=== PATIENT | female | born 1940 | race African-American/Black ===

== ENCOUNTER 2022-08-10 22:53 | Emergency (ER) | payer OTHER ==
[~2022-08-10] VITALS: Ht 172.7 cm; Wt 82.0 kg
[2022-08-10 22:55] VITALS: O2SAT 99
[2022-08-11 00:23] LABS: BASOPHILS % 0.6 % (0.0-2.0); EOSINOPHILS % 0.5 % (0.0-5.0); HEMOGLOBIN. 15.7 g/dL (12.0-16.0); LYMPHOCYTES % 15.3 % (20.0-50.0); MEAN CORPUSCULAR VOLUME 97.6 fL (81.0-99.0); MEAN PLATELET VOLUME 8.6 fl (7.4-10.4); MONOCYTES % 10.5 % (2.0-8.0); NEUTROPHILS % 73.1 % (40.0-76.0); PLATELET 185 x1000/uL (130-400); RED BLOOD CELL COUNT 4.92 mill/uL (4.2-5.4); RED CELL DISTRIBUTION WIDTH 13.8 % (11.6-14.6)
[2022-08-11 00:47] LABS: CLARITY URINE CLEAR (CLEAR); COLOR URINE YELLOW (YELLOW); KETONES URINE NEGATIVE (NEGATIVE); LEUKOCYTE ESTERASE URINE TRACE (NEGATIVE); NITRITE URINE NEGATIVE (NEGATIVE); OCCULT BLOOD URINE NEGATIVE (NEGATIVE); PH URINE 7.5 (4.5-8.0); PROTEIN URINE TRACE (NEGATIVE); SPECIFIC GRAVITY URINE 1.016 (1.005-1.030)
[2022-08-11 01:04] LABS: *AMPHETAMINES SCREEN URINE NEGATIVE (NEGATIVE); *BARBITURATES SCREEN URINE NEGATIVE (NEGATIVE); *BENZODIAZEPINES SCREEN URINE NEGATIVE (NEGATIVE); *COCAINE SCREEN URINE NEGATIVE (NEGATIVE); CANNABINOID URINE SCREEN NEGATIVE (NEGATIVE); METHADONE URINE SCREEN NEGATIVE (NEGATIVE); OPIATES URINE SCREEN NEGATIVE (NEGATIVE); PHENCYCLIDINE URINE SCREEN NEGATIVE (NEGATIVE)
[2022-08-11 02:59] LABS: CHLORIDE 102 mEq/L (98-107)
[2022-08-11 03:08] LABS: ETHANOL BLOOD < 10 mg/dL (-10)
[2022-08-11] MEDS ORDERED: CEFTRIAXONE 1GM PREMIX 50 ML IV ONE (03:15)
[2022-08-11 07:54] VITALS: BP 131/80; PULSE 99; RESP 26; TEMP 97.4
== END 2022-08-11 08:16 | disposition short-term general hospital (02) ==
LOC: EDBD 22:53 → ER 22:53
DX: G93.40 Encephalopathy, unspecified (principal); N39.0 Urinary tract infection, site not specified; I48.91 Unspecified atrial fibrillation; R51.9 Headache, unspecified
CPT/HCPCS: 80053; 80305; 81003; 80320; 82140; 85025; 84484; 36415; 71045; 99285; 87426; 70450; 96365; C9803; J0696; G0480

== ENCOUNTER 2023-08-16 14:52 | Emergency (ER) | payer OTHER ==
[~2023-08-16] VITALS: Ht 157.5 cm; Wt 91.0 kg
[2023-08-16 15:00] VITALS: O2SAT 99
[2023-08-16] MEDS: HYDROCODONE/ACETAMINOPHEN 5/325MG TABLET PO ONE (16:42)
[2023-08-16] MEDS: ONDANSETRON HCL 4MG/2ML INJ IV ONE (18:05)
[2023-08-16] MEDS: MORPHINE SULFATE 4 MG/ML INJ (FOR IV/IM USE) IV ONE (18:05)
[2023-08-16 18:06] LABS: BASOPHILS % 0.4 % (0.0-2.0); EOSINOPHILS % 0.1 % (0.0-5.0); HEMATOCRIT. 49.7 % (36.0-48.0); HEMOGLOBIN. 16.4 g/dL (12.0-16.0); LYMPHOCYTES % 14.7 % (20.0-50.0); MEAN CORPUSCULAR HEMOGLOBIN 32.5 pg (28.0-32.0); MEAN CORPUSCULAR HGB CONC 32.9 g/dL (31.0-37.0); MEAN CORPUSCULAR VOLUME 98.6 fL (81.0-99.0); MEAN PLATELET VOLUME 8.8 fl (7.4-10.4); MONOCYTES % 4.9 % (2.0-8.0); NEUTROPHILS % 79.9 % (40.0-76.0); PLATELET 202 x1000/uL (130-400); RED BLOOD CELL COUNT 5.04 mill/uL (4.2-5.4); RED CELL DISTRIBUTION WIDTH 14.4 % (11.6-14.6); WHITE BLOOD COUNT 8.6 x1000/uL (4.5-11.0)
[2023-08-16 18:12] LABS: CHLORIDE 105 mEq/L (98-107); POTASSIUM 4.2 mEq/L (3.5-5.1); SODIUM 139 mEq/L (136-145)
[2023-08-16 18:13] LABS: CARBON DIOXIDE 26 mEq/L (21-32)
[2023-08-16 18:14] LABS: CALCIUM 10.3 mg/dL (8.7-10.4)
[2023-08-16 18:18] LABS: CREATININE 0.9 mg/dL (0.6-1.0); GLUCOSE 117 mg/dL (70-105)
[2023-08-16 18:19] LABS: UREA NITROGEN BLOOD 14 mg/dL (9-23)
[2023-08-16 18:33] LABS: INR 1.2; PROTHROMBIN TIME 13.1 sec (9.6-11.0)
[2023-08-16] MEDS: METOPROLOL TARTRATE 5MG/5ML VIAL IV STA ×2 (20:28→20:41)
[2023-08-16] MEDS: METOPROLOL TARTRATE 50MG TABLET PO ONE (21:25)
[2023-08-16 21:27] VITALS: BP 173/117; PULSE 105; RESP 12; TEMP 98.8
== END 2023-08-16 21:49 | disposition short-term general hospital (02) ==
LOC: ER 14:52
DX: S09.90XA Unspecified injury of head, initial encounter (principal); M25.561 Pain in right knee; I48.91 Unspecified atrial fibrillation; I10 Essential (primary) hypertension; W18.39XA Other fall on same level, initial encounter; Y93.89 Activity, other specified; Y92.89 Other specified places as the place of occurrence of the external cause; Y99.8 Other external cause status
CPT/HCPCS: 99285; 96374; 70450; 96375; 71045; 80048; 85025; 85610; 86850; 86900; 86901; 36415; 73502; 73552; 73560; 93005; J3490; J2405; J2270

== ENCOUNTER 2023-09-25 17:10 | Emergency (ER) | payer OTHER ==
[~2023-09-25] VITALS: Ht 165.1 cm; Wt 65.0 kg
[2023-09-25 17:15] VITALS: O2SAT 98
[2023-09-25] MEDS: SODIUM CHLORIDE 0.9% 1,000 ML IV ONE (18:14)
[2023-09-25 19:30] LABS: BASOPHILS % 0.7 % (0.0-2.0); DIFFERENTIAL COMMENT 0; EOSINOPHILS % 0.7 % (0.0-5.0); HEMATOCRIT. 47.2 % (36.0-48.0); HEMOGLOBIN. 14.2 g/dL (12.0-16.0); LYMPHOCYTES % 40.1 % (20.0-50.0); MEAN CORPUSCULAR HEMOGLOBIN 30.8 pg (28.0-32.0); MEAN CORPUSCULAR HGB CONC 30.1 g/dL (31.0-37.0); MEAN CORPUSCULAR VOLUME 102.4 fL (81.0-99.0); MEAN PLATELET VOLUME 10.2 fl (7.4-10.4); MONOCYTES % 8.1 % (2.0-8.0); NEUTROPHILS % 50.4 % (40.0-76.0); PLATELET 255 x1000/uL (130-400); RED BLOOD CELL COUNT 4.61 mill/uL (4.2-5.4); RED CELL DISTRIBUTION WIDTH 17.3 % (11.6-14.6); WHITE BLOOD COUNT 7.8 x1000/uL (4.5-11.0)
[2023-09-25 19:36] LABS: CHLORIDE 120 mEq/L (98-107); POTASSIUM 4.9 mEq/L (3.5-5.1); SODIUM 155 mEq/L (136-145)
[2023-09-25 19:39] LABS: CALCIUM 10.9 mg/dL (8.7-10.4); CARBON DIOXIDE 28 mEq/L (21-32)
[2023-09-25 19:42] LABS: CREATININE 0.9 mg/dL (0.6-1.0); GLUCOSE 142 mg/dL (70-105); UREA NITROGEN BLOOD 34 mg/dL (9-23)
[2023-09-25 19:43] LABS: ETHANOL BLOOD < 10 mg/dL (<10)
[2023-09-25 19:44] LABS: LACTIC ACID 2.4 mmol/L (0.4-2.0)
[2023-09-25 19:46] LABS: TROPONIN I HIGH SENSITIVITY 241 ng/L (3.0-34)
[2023-09-25] MEDS ORDERED: ACETAMINOPHEN 650MG SUPP PR PRN ×2 (22:30)
[2023-09-25] MEDS ORDERED: ONDANSETRON HCL 4MG/2ML INJ IV PRN (22:30)
[2023-09-25] MEDS ORDERED: IPRATROPIUM/ALBUTEROL 0.5-3(2.5)MG/3ML NEB HHN PRN (22:30)
[2023-09-25] MEDS ORDERED: DEXTROSE 5% WATER 1,000 ML IV SCH (22:30)
[2023-09-25] MEDS ORDERED: HYDRALAZINE 20MG/ML VIAL IV PRN (22:30)
[2023-09-25 23:35] LABS: CHLORIDE 123 mEq/L (98-107); POTASSIUM 3.4 mEq/L (3.5-5.1)
[2023-09-25 23:36] LABS: CALCIUM 10.6 mg/dL (8.7-10.4); CARBON DIOXIDE 27 mEq/L (21-32)
[2023-09-25 23:39] LABS: INR 1.4; PROTHROMBIN TIME 15.7 sec (9.6-11.0)
[2023-09-25 23:41] LABS: CREATININE 0.6 mg/dL (0.6-1.0); GLUCOSE 133 mg/dL (70-105); UREA NITROGEN BLOOD 27 mg/dL (9-23)
[2023-09-25 23:43] LABS: AMMONIA < 17 uMol/L (<32)
[2023-09-25 23:48] LABS: TROPONIN I HIGH SENSITIVITY 235 ng/L (3.0-34)
[2023-09-25 23:51] LABS: SODIUM 157 mEq/L (136-145)
[2023-09-25 23:57] LABS: TROPONIN I HIGH SENSITIVITY 222 ng/L (3.0-34)
[2023-09-26 00:52] VITALS: BP 143/66; PULSE 86; RESP 18; TEMP 36.61404; O2SAT 99
== END 2023-09-26 00:55 | disposition short-term general hospital (02) ==
LOC: ER 17:16 → EDBEDREQ 20:33 → ER 09-26 00:55
DX: R41.82 Altered mental status, unspecified (principal); I48.91 Unspecified atrial fibrillation; I10 Essential (primary) hypertension; Z86.73 Personal history of transient ischemic attack (TIA), and cerebral infarction without residual deficits
CPT/HCPCS: 80048; 80320; 82140; 83880; 83605; 83930; 85025; 85610; 87040; 84484; 36415; 71045; 70450; 96360; 99285; J7030; G0480

== ENCOUNTER 2024-03-31 15:06 | Inpatient (IN) | payer OTHER, MEDICAID ==
[~2024-03-31] VITALS: Ht 170.2 cm; Wt 78.0 kg
[2024-03-31] MEDS: SODIUM CHLORIDE 0.9% (SEPSIS BOLUS) IV ONE (16:08)
[2024-03-31] MEDS: ACETAMINOPHEN 650MG SUPP PR STA (16:08)
[2024-03-31] MEDS: CEFTRIAXONE 1GM/50ML 50 ML IV ONE (16:08)
[2024-03-31 16:17] LABS: BASOPHILS % 0.2 % (0.0-2.0); DIFFERENTIAL COMMENT 0; EOSINOPHILS % 0.2 % (0.0-5.0); HEMATOCRIT. 48.9 % (36.0-48.0); HEMOGLOBIN. 15.1 g/dL (12.0-16.0); LYMPHOCYTES % 15.4 % (20.0-50.0); MEAN CORPUSCULAR HEMOGLOBIN 29.9 pg (28.0-32.0); MEAN CORPUSCULAR HGB CONC 30.8 g/dL (31.0-37.0); MEAN PLATELET VOLUME 11.3 fl (7.4-10.4); MONOCYTES % 10.9 % (2.0-8.0); NEUTROPHILS % 73.3 % (40.0-76.0); PLATELET 175 x1000/uL (130-400); RED BLOOD CELL COUNT 5.04 mill/uL (4.2-5.4); RED CELL DISTRIBUTION WIDTH 18.7 % (11.6-14.6); WHITE BLOOD COUNT 9.7 x1000/uL (4.5-11.0)
[2024-03-31 16:24] LABS: CARBON DIOXIDE 25 mEq/L (21-32); CHLORIDE 122 mEq/L (98-107); POTASSIUM 3.7 mEq/L (3.5-5.1)
[2024-03-31 16:25] LABS: CALCIUM 10.9 mg/dL (8.7-10.4)
[2024-03-31 16:30] LABS: CREATININE 0.6 mg/dL (0.6-1.0); GLUCOSE 153 mg/dL (70-105); UREA NITROGEN BLOOD 23 mg/dL (9-23)
[2024-03-31 16:42] LABS: SODIUM 161 mEq/L (136-145); TROPONIN I HIGH SENSITIVITY 223 ng/L (3.0-34)
[2024-03-31] MEDS: AZITHROMYCIN 500MG/250ML 250 ML IV ONE (17:33)
[2024-03-31 19:36] LABS: TROPONIN I HIGH SENSITIVITY 179 ng/L (3.0-34)
[2024-03-31 20:24] LABS: CLARITY URINE TURBID (CLEAR); COLOR URINE DARK YELLOW (YELLOW); GLUCOSE URINE NEGATIVE (NEGATIVE); KETONES URINE TRACE (NEGATIVE); LEUKOCYTE ESTERASE URINE 3+ (NEGATIVE); NITRITE URINE POSITIVE (NEGATIVE); OCCULT BLOOD URINE 1+ (NEGATIVE); PROTEIN URINE 2+ (NEGATIVE); SPECIFIC GRAVITY URINE 1.023 (1.005-1.030)
[2024-03-31 21:04] LABS: SQUAMOUS EPITHELIAL CELL URINE 1+ /lpf (RARE/1+); WBC URINE 50-100 /hpf (0-2)
[2024-03-31 21:06] LABS: BACTERIA URINE 1+
[2024-03-31] MEDS ORDERED: CLONIDINE 0.1MG TABLET PO PRN (22:15)
[2024-03-31] MEDS ORDERED: ACETAMINOPHEN 325MG TABLET PO PRN (22:15)
[2024-03-31] MEDS ORDERED: ZOLPIDEM TARTRATE 5MG TABLET PO PRN (22:15)
[2024-03-31] MEDS ORDERED: ONDANSETRON HCL 4MG/2ML INJ IV PRN (22:15)
[2024-03-31] MEDS: DEXT 5%/0.45% NACL 1000ML 1,000 ML IV SCH (23:54)
[2024-04-01] MEDS ORDERED: APIX5TAB (03:15)
[2024-04-01] MEDS ORDERED: LATA2.5D14 EACHEYE (03:15)
[2024-04-01] MEDS ORDERED: ATOR40TA70 (03:15)
[2024-04-01] MEDS ORDERED: [UNRECOGNIZED DRUG - CODE] (03:15)
[2024-04-01] MEDS ORDERED: HYDR-4001 (03:15)
[2024-04-01 03:24] VITALS: BP 125/82; PULSE 94; RESP 20; TEMP 35.6
[2024-04-01 03:28] VITALS: BP 125/82; PULSE 94; RESP 20; TEMP 35.6; O2SAT 95
[2024-04-01 07:19] LABS: BASOPHILS % 0.1 % (0.0-2.0); DIFFERENTIAL COMMENT 0; EOSINOPHILS % 0.2 % (0.0-5.0); HEMATOCRIT. 41.9 % (36.0-48.0); HEMOGLOBIN. 13.4 g/dL (12.0-16.0); LYMPHOCYTES % 16.3 % (20.0-50.0); MEAN CORPUSCULAR HEMOGLOBIN 30.4 pg (28.0-32.0); MEAN PLATELET VOLUME 11.7 fl (7.4-10.4); MONOCYTES % 8.4 % (2.0-8.0); PLATELET 145 x1000/uL (130-400); RED BLOOD CELL COUNT 4.41 mill/uL (4.2-5.4); RED CELL DISTRIBUTION WIDTH 17.6 % (11.6-14.6); WHITE BLOOD COUNT 10.1 x1000/uL (4.5-11.0)
[2024-04-01 07:39] LABS: CHLORIDE 121 mEq/L (98-107)
[2024-04-01 07:40] LABS: CARBON DIOXIDE 27 mEq/L (21-32)
[2024-04-01 07:41] LABS: CALCIUM 10.7 mg/dL (8.7-10.4)
[2024-04-01 07:45] LABS: CREATININE 0.5 mg/dL (0.6-1.0)
[2024-04-01 07:46] LABS: GLUCOSE 209 mg/dL (70-105); UREA NITROGEN BLOOD 22 mg/dL (9-23)
[2024-04-01 08:28] VITALS: BP 144/74; PULSE 52; RESP 18; TEMP 37; O2SAT 95
[2024-04-01 08:34] LABS: POTASSIUM 2.7 mEq/L (3.5-5.1); SODIUM 159 mEq/L (136-145); TROPONIN I HIGH SENSITIVITY 160 ng/L (3.0-34)
[2024-04-01] MEDS: ENOXAPARIN 40MG/0.4ML SYR SUBCUT SCH (09:00)
[2024-04-01] MEDS: KCL 20MEQ/100ML PREMIX 100 ML IV SCH (09:07)
[2024-04-01 10:23] LABS: *AMPHETAMINES SCREEN URINE NEGATIVE (NEGATIVE); *BARBITURATES SCREEN URINE NEGATIVE (NEGATIVE); *BENZODIAZEPINES SCREEN URINE NEGATIVE (NEGATIVE); *COCAINE SCREEN URINE NEGATIVE (NEGATIVE)
[2024-04-01 10:24] LABS: CANNABINOID URINE SCREEN NEGATIVE (NEGATIVE); ECSTASY MDMA SCREEN URINE NEGATIVE (NEGATIVE); METHADONE URINE SCREEN NEGATIVE (NEGATIVE); OPIATES URINE SCREEN NEGATIVE (NEGATIVE); PHENCYCLIDINE URINE SCREEN NEGATIVE (NEGATIVE)
[2024-04-01 12:00] VITALS: BP 129/82; PULSE 94; RESP 18; TEMP 36.6; O2SAT 95
[2024-04-01] MEDS ORDERED: CEFTRIAXONE 1GM/50ML 50 ML IV SCH (16:00)
[2024-04-01 16:24] VITALS: BP 130/77; PULSE 94; RESP 18; TEMP 35.9; O2SAT 100
[2024-04-01] MEDS ORDERED: AZITHROMYCIN 500MG/250ML 250 ML IV SCH (17:00)
[2024-04-01] MEDS: CEFTRIAXONE 1GM/50ML 50 ML IV SCH (17:17)
[2024-04-01] MEDS: AZITHROMYCIN 500MG/250ML 250 ML IV SCH (17:58)
[2024-04-01 20:00] VITALS: BP 143/91; PULSE 94; RESP 20; TEMP 36.2; O2SAT 100
[2024-04-01 22:00] LABS: INR 1.2; PROTHROMBIN TIME 13.2 sec (9.6-11.0)
[2024-04-01 22:21] LABS: TROPONIN I HIGH SENSITIVITY 110 ng/L (3.0-34)
[2024-04-02] VITALS: BP 107/77; PULSE 97; RESP 18; TEMP 36.1; O2SAT 98
[2024-04-02 04:00] VITALS: BP 103/69; PULSE 90; RESP 18; TEMP 36.3; O2SAT 96
[2024-04-02] MEDS: ENOXAPARIN 60MG/0.6ML SYR SUBCUT SCH (05:15)
[2024-04-02 07:20] LABS: BASOPHILS % 0.2 % (0.0-2.0); EOSINOPHILS % 0.8 % (0.0-5.0); HEMATOCRIT. 39.2 % (36.0-48.0); LYMPHOCYTES % 17.5 % (20.0-50.0); MEAN CORPUSCULAR HEMOGLOBIN 31.5 pg (28.0-32.0); MEAN CORPUSCULAR HGB CONC 33.2 g/dL (31.0-37.0); MEAN CORPUSCULAR VOLUME 94.8 fL (81.0-99.0); MEAN PLATELET VOLUME 12.6 fl (7.4-10.4); MONOCYTES % 9.9 % (2.0-8.0); NEUTROPHILS % 71.6 % (40.0-76.0); PLATELET 140 x1000/uL (130-400); RED BLOOD CELL COUNT 4.14 mill/uL (4.2-5.4); WHITE BLOOD COUNT 8.6 x1000/uL (4.5-11.0)
[2024-04-02 07:28] LABS: CALCIUM 10.6 mg/dL (8.7-10.4); CARBON DIOXIDE 24 mEq/L (21-32); CHLORIDE 122 mEq/L (98-107)
[2024-04-02 07:29] LABS: POTASSIUM 2.9 mEq/L (3.5-5.1)
[2024-04-02 07:34] LABS: CREATININE 0.5 mg/dL (0.6-1.0); GLUCOSE 185 mg/dL (70-105)
[2024-04-02 07:35] LABS: UREA NITROGEN BLOOD 19 mg/dL (9-23)
[2024-04-02 08:00] VITALS: BP 134/71; PULSE 89; RESP 18; TEMP 36.1; O2SAT 99
[2024-04-02 08:34] LABS: SODIUM 158 mEq/L (136-145)
[2024-04-02] MEDS: POTASSIUM CHLORIDE 20MEQ/PACKET PO NR (12:08)
[2024-04-02] MEDS: DEXTROSE 5% WATER 1,000 ML IV SCH (12:08)
[2024-04-02 12:09] VITALS: BP 121/76; PULSE 54; RESP 18; TEMP 37.2; O2SAT 93
[2024-04-02] MEDS: KCL 20MEQ/100ML PREMIX 100 ML IV SCH (14:24)
[2024-04-02 14:51] LABS: PHOSPHORUS 1.1 mg/dL (2.5-4.9)
[2024-04-02 16:08] VITALS: BP 142/62; PULSE 100; RESP 18; TEMP 37; O2SAT 95
[2024-04-02 20:00] VITALS: BP 160/80; PULSE 99; RESP 20; TEMP 36.1; O2SAT 95
[2024-04-03] VITALS: BP 118/74; PULSE 88; RESP 18; TEMP 36.2; O2SAT 100
[2024-04-03 04:00] VITALS: BP 119/75; PULSE 96; RESP 18; TEMP 36.1; O2SAT 97
[2024-04-03 06:42] LABS: CALCIUM 10.4 mg/dL (8.7-10.4); CARBON DIOXIDE 24 mEq/L (21-32); CHLORIDE 120 mEq/L (98-107); POTASSIUM 3.7 mEq/L (3.5-5.1); SODIUM 154 mEq/L (136-145)
[2024-04-03 06:48] LABS: CREATININE 0.4 mg/dL (0.6-1.0); GLUCOSE 132 mg/dL (70-105)
[2024-04-03 06:49] LABS: UREA NITROGEN BLOOD 15 mg/dL (9-23)
[2024-04-03 06:51] LABS: PHOSPHORUS 1.2 mg/dL (2.5-4.9)
[2024-04-03 07:17] LABS: BASOPHILS % 0.2 % (0.0-2.0); DIFFERENTIAL COMMENT 0; HEMATOCRIT. 39.2 % (36.0-48.0); LYMPHOCYTES % 21.4 % (20.0-50.0); MEAN CORPUSCULAR HEMOGLOBIN 31.5 pg (28.0-32.0); MEAN CORPUSCULAR HGB CONC 33.1 g/dL (31.0-37.0); MEAN PLATELET VOLUME 12.5 fl (7.4-10.4); MONOCYTES % 11.3 % (2.0-8.0); NEUTROPHILS % 65.1 % (40.0-76.0); PLATELET 144 x1000/uL (130-400); RED BLOOD CELL COUNT 4.12 mill/uL (4.2-5.4); WHITE BLOOD COUNT 7.1 x1000/uL (4.5-11.0)
[2024-04-03 08:00] VITALS: BP 122/85; PULSE 91; RESP 20; TEMP 36; O2SAT 100
[2024-04-03] MEDS: AZITHROMYCIN 500 MG TABLET PO SCH (09:47)
[2024-04-03] MEDS: ASPIRIN 81MG TABLET PO SCH (11:54)
[2024-04-03] MEDS: MAGNESIUM 2 G PREMIX 50 ML IV NR (11:55)
[2024-04-03 12:00] VITALS: BP 114/79; PULSE 80; RESP 18; TEMP 36.1; O2SAT 91
[2024-04-03] MEDS: POTASSIUM PHOSPHATE 20 MMOL in DEXT 5% WATER 243.3333 ML IV NR (14:27)
[2024-04-03 16:00] VITALS: BP 131/84; PULSE 100; RESP 20; TEMP 36.1; O2SAT 99
[2024-04-03 17:21] VITALS: BP 131/84; PULSE 100; TEMP 97; O2SAT 99
[2024-04-03] MEDS: ENOXAPARIN 80MG/0.8ML SYR SUBCUT SCH (18:29)
[2024-04-03] MEDS ORDERED: ATORVASTATIN CALCIUM 40MG TABLET PO SCH (21:00)
== END 2024-04-03 18:45 | disposition short-term general hospital (02) | DRG 64 ==
LOC: ER 15:06 → EDBEDREQ 15:31 → 7WST 17:59 → EDBEDREQSVC 18:00 → EDBEDREQTM 18:00 → EDBEDREQ 18:00 → EDBEDREQSVC 04-01 01:34
PROVIDERS: ADMIT Internal Medicine; ATTEND Internal Medicine
PROC: 4A00X4Z Measurement of Central Nervous Electrical Activity, External Approach (ICD-10-PCS; principal; 2024-04-02)
DX: I63.512 Cerebral infarction due to unspecified occlusion or stenosis of left middle cerebral artery (principal); G92.8 Other toxic encephalopathy; I21.A1 Myocardial infarction type 2; G81.91 Hemiplegia, unspecified affecting right dominant side; E87.0 Hyperosmolality and hypernatremia; N39.0 Urinary tract infection, site not specified; Z20.822 Contact with and (suspected) exposure to COVID-19; E87.6 Hypokalemia; R62.7 Adult failure to thrive; N18.1 Chronic kidney disease, stage 1; I12.9 Hypertensive chronic kidney disease with stage 1 through stage 4 chronic kidney disease, or unspecified chronic kidney disease; I48.0 Paroxysmal atrial fibrillation; E78.5 Hyperlipidemia, unspecified; E86.1 Hypovolemia; Z79.01 Long term (current) use of anticoagulants; Z79.899 Other long term (current) drug therapy; Z87.440 Personal history of urinary (tract) infections; Z68.26 Body mass index [BMI] 26.0-26.9, adult
CPT/HCPCS: 36415; 70551; 71045; 80048; 80305; 81003; 83605; 83735; 84100; 84145; 84484; 85025; 87077; 87186; 87426; 93005; 93306; 93970; 95816; 99291; A4606; J0456; J0696; J1650; J3475; J3480; J3490; J7030; J7060; J7070